=== PATIENT | female | born 1950 | race Native Hawaiian/Other Pacific Islander ===

== ENCOUNTER 2016-11-19 14:53 | Outpatient (CLI) | payer OTHER ==
[~2016-11-19 14:53] MED LIST: FERROUS SULF325 M1 PO; FURO20TA67 PO; LEVO0.08 PO; LISINOP/HCTZ1 TA2 PO; SIMV40TA57 PO
== END 2016-11-19 19:20 | disposition home or self-care (01) ==
LOC: LABW 14:53
DX: C54.1 Malignant neoplasm of endometrium (principal)
CPT/HCPCS: 36415; 86304

== ENCOUNTER 2017-08-04 11:20 | Observation (INO) | payer OTHER ==
[~2017-08-04] VITALS: Ht 162.6 cm; Wt 135.3 kg
--- NOTE | 2017-08-04 12:00 | NUR ---
PT ADMITTED WITH CHEST PAIN AND DIZZINESS. PT REPORTS HAVING A BM THIS AM AND BECOMING LIGHTHEADED WHILE ON TOILET. PT ALSO STATES SHE HAS CHEST PAIN AFTER SHE EATS A MEAL. JANES UNSTEADY AND REQUIRES A CANE TO AMBULATE. PT REPORTS HAVING SHORTNESS OF BREATH ON AMBULATION. RR EQUAL NONLABORED. HR 61 BP 161/61. O2 SAT 100% RA. PT ORIENTED TO ROOM AND CALL LIGHT IN REACH. SR UP X2. BED IN LOWEST POSITION. WILL CONTINUE TO MONITOR.
[2017-08-04 12:17] VITALS: BP 161/61; TEMP 97.9; Ht 162.6 cm; Wt 135.3 kg
[2017-08-04 12:22] LABS: PLATELET COUNT 190 K/uL (152-353)
[2017-08-04 12:41] LABS: PARTIAL THROMBOPLASTIN TIME 26.8 SECONDS (24.5-33.6)
[2017-08-04 12:45] LABS: POTASSIUM 4.1 mmol/L (3.6-5.2); SODIUM 136 mmol/L (136-145)
[2017-08-04] MEDS ORDERED: CIPR500T PO (13:58)
[2017-08-04] MEDS ORDERED: MELOXICAM15 MG PO (13:59)
[2017-08-04] MEDS ORDERED: DORZOLAMIDE2 % OP (14:01)
[2017-08-04] MEDS ORDERED: ALPHAGAN P0.1 % OP (14:03)
[2017-08-04] MEDS ORDERED: LATANOPROST0.005 % OP (14:03)
[2017-08-04 16:00] VITALS: BP 161/60; TEMP 97.9
[2017-08-04 20:00] VITALS: BP 129/63; TEMP 98
[2017-08-05] VITALS: BP 112/62; TEMP 97.6
[2017-08-05 04:00] VITALS: BP 103/54; TEMP 97.6
[2017-08-05 08:00] VITALS: BP 99/50; TEMP 97.6
[2017-08-05 12:00] VITALS: BP 146/66; TEMP 97.9
== END 2017-08-05 13:40 | disposition home or self-care (01) ==
LOC: MED/SURG 11:20
PROVIDERS: ADMIT Family Medicine
DX: R55 Syncope and collapse (principal); R07.89 Other chest pain
CPT/HCPCS: 36415; 80053; 82550; 84484; 85027; 85610; 85730; 93005; 96365; 96366; 96372; 99220; G0378; G0379; J1650

== ENCOUNTER 2017-12-21 14:34 | Outpatient (CLI) | payer OTHER ==
[~2017-12-21 14:34] MED LIST changes: +ALPHAGAN P0.1 % OP; +CIPR500T PO; +DORZOLAMIDE2 % OP; +LATANOPROST0.005 % OP; +MELOXICAM15 MG PO
== END 2017-12-21 23:17 | disposition home or self-care (01) ==
LOC: MAMMO 14:34
DX: Z12.31 Encounter for screening mammogram for malignant neoplasm of breast (principal); M81.0 Age-related osteoporosis without current pathological fracture